=== PATIENT | male | born 1945 | race Caucasian/White ===

== ENCOUNTER 2018-08-27 17:33 | Emergency (ER) | payer OTHER ==
--- NOTE | 2018-08-27 18:35 | ER Document Report ---
ED Medical Screen (RME) - General Chief Complaint: Leg Pain Stated Complaint: LEG PAIN Time Seen by Provider: 08/27/18 18:34 Mode of Arrival: Ambulatory Information source: Patient Notes: 23-year-old male presented to ED for complaint of right leg pain and swelling. He states he has had pain for couple days but it started swelling this morning. He states that he took a flight from [place] on Sunday and swelling started this morning. He has a extensive history of orthopedic surgeries to include hip replacement one just after Thanksgiving the other one May 2018. He does not smoke but he does drink 2-3 beers a day. He lives with his . I have greeted and performed a rapid initial assessment of this patient. A comprehensive ED assessment and evaluation of the patient, analysis of test results and completion of medical decision making process will be conducted by an additional ED providers. Dictation of this chart was performed using voice recognition software; therefore, there may be some unintended grammatical errors. TRAVEL OUTSIDE OF THE [place] IN LAST 30 DAYS: No Physical Exam - Vital signs Vitals: Temp Pulse Resp BP Pulse Ox 98.4 F 78 17 165/72 H 98 08/27/18 18:06 08/27/18 18:06 08/27/18 18:06 08/27/18 18:06 08/27/18 18:06 Course - Vital Signs Vital signs: Temp Pulse Resp BP Pulse Ox 98.4 F 78 17 165/72 H 98 08/27/18 18:06 08/27/18 18:06 08/27/18 18:06 08/27/18 18:06 08/27/18 18:06
--- NOTE | 2018-08-27 22:41 | ER Document Report ---
ED General - General Chief Complaint: Leg Pain Stated Complaint: LEG PAIN Time Seen by Provider: 08/27/18 18:34 Mode of Arrival: Ambulatory Notes: Patient is a 73-year-old male who is visiting from out of town. He recently went on a flight from [place] to here. Says he has some swelling in his right leg which is new since the flight. No history of DVT or PE. He does have previous history of surgery on his right ankle. No trauma. He says he has pain is mainly in the calf muscle itself with some swelling down into the ankle and foot. No pain into the thigh or knee. No chest pain or shortness of breath. TRAVEL OUTSIDE OF THE [place] IN LAST 30 DAYS: No Past Medical History - General Information source: Patient - Social History Smoking Status: Never Smoker Chew tobacco use (# tins/day): No Frequency of alcohol use: None Drug Abuse: None Family History: Reviewed & Not Pertinent Patient has suicidal ideation: No Patient has homicidal ideation: No Renal/ Medical History: Denies: Hx Peritoneal Dialysis Review of Systems - Review of Systems Notes: My Normal Review Basic REVIEW OF SYSTEMS: CONSTITUTIONAL : Denies fever, chills, or sweats. Denies recent illness. CARDIOVASCULAR: Denies chest pain. RESPIRATORY: Denies cough, cold, or chest congestion. Denies shortness of breath, difficulty breathing, or wheezing. MUSCULOSKELETAL: Right calf pain. SKIN: Denies rash or skin lesions. NEUROLOGICAL: Denies altered mental status or loss of consciousness. ALL OTHER SYSTEMS REVIEWED AND NEGATIVE. My Normal Review Basic Physical Exam - Vital signs Vitals: Temp Pulse Resp BP Pulse Ox 98.4 F 78 17 165/72 H 98 08/27/18 18:06 08/27/18 18:06 08/27/18 18:06 08/27/18 18:06 08/27/18 18:06 - Notes Notes: General Appearance: Well nourished, alert, cooperative, no acute distress, no obvious discomfort. Well-appearing. Vitals: reviewed, See vital signs table. Eyes: PERRL, EOMI, Conjuctiva clear Extremities: good pulses in all extremities, patient does have small amount of swelling in the right ankle. There is no pain to palpation of the ankle. He does have some pain to palpation over the posterior calf about midway up the calf on the right leg. No pain in the popliteal fossa. No pain to palpation of the near thigh. No redness. No signs of infection. Skin: warm, dry, appropriate color, no rash Neuro: speech clear, oriented x 3, normal affect, responds appropriately to questions. Course - Re-evaluation Re-evalutation: 08/28/18 03:51 Ultrasounds notes show that there is no evidence of DVT or SVT. Suspect patient may have a small gastrocnemius tear being that he does have pinpoint pain to palpation over the gastrocnemius muscle. No pain to palpation of the Achilles tendon and he has good dorsiflexion and plantarflexion of the foot without difficulty. does admit that they are walking a whole lot and on the feet quite a bit. Informed him to avoid stairs. Informed him to have his leg reevaluated this coming week when he goes back home. At this time is ultrasound shows no evidence of clot. Encouraged him return to ER immediately if he has severe chest pain, difficulty breathing, or feels pain in his leg. Patient agrees with plan will be discharged home. Dictation of this chart was performed using voice recognition software; therefore, there may be some unintended grammatical errors. - Vital Signs Vital signs: Temp Pulse Resp BP Pulse Ox 98.4 F 70 18 166/90 H 96 08/27/18 18:06 08/27/18 23:07 08/27/18 23:07 08/27/18 23:07 08/27/18 23:07 Discharge - Discharge Clinical Impression: Leg pain Qualifiers: Laterality: right Qualified Code(s): M79.604 - Pain in right leg Condition: Good Disposition: HOME, SELF-CARE Additional Instructions: Your ultrasound did not show evidence of a clot in your leg. I suspect that you may have a small calf strain with some associated swelling. Please try to avoid stairs and steps. Please keep your leg elevated at night when resting. If you are still having pain or swelling in your leg after you get home, please have your doctor reevaluate you and potentially have repeat ultrasound performed. Please have a low threshold to return to ER if you have increasing leg swelling, any chest pain or shortness of breath, or if you feel that you are worsening in any way.
[2018-08-27 23:10] VITALS: BP 166/90
--- NOTE | 2018-08-28 02:35 | RADIOLOGY REPORT (SQ) ---
EXAM DESCRIPTION: US EXTREMITY VEINS UNILATERAL COMPLETED DATE/TME: 08/27/2018 18:35 CLINICAL HISTORY: 73 years, Male, right leg pain and swelling flight sat, edema tod COMPARISON: None. TECHNIQUE: Transverse longitudinal sonographic images of the right lower extremity deep venous system LIMITATIONS: None. FINDINGS: No visible areas of thrombus. Normal compression and augmentation throughout. Doppler and spectral analysis with color flow is unremarkable IMPRESSION: Negative exam copyright 2010 [employer]- All Rights Reserved
== END 2018-08-27 23:10 | disposition home or self-care (01) ==
LOC: ER 17:33
DX: M79.604 Pain in right leg (principal)
CPT/HCPCS: 93971; 99283